=== PATIENT | female | born 1965 | race Caucasian/White ===

== ENCOUNTER → 2017-03-17 11:43 | Outpatient (CLI) | payer MEDICAID, SELFPAY ==
[2017-03-22 15:46] LABS: HPV Reflexed? NOT INDICATED
== END ==
PROVIDERS: Family Provider Family Medicine; PCP Family Medicine; Visit Provider Obstetrics & Gynecology
DX: Z12.4 Encounter for screening for malignant neoplasm of cervix (principal)
CPT/HCPCS: 88175; G0145

== ENCOUNTER → 2017-06-13 10:24 | Outpatient (CLI) | payer MEDICAID, SELFPAY ==
--- NOTE | 2017-06-13 19:33 | STRESSREP ---
Stress Test Report Exercise stress test. 52-year-old lady with a history of chest pain. Stress protocol: Resting EKG demonstrates sinus tachycardia with a rate of 111 bpm. Resting blood pressure is 154 102 mmHg. The patient exercised according to regular Forrest protocol for a total duration of 6 minutes completing stage II of the Forrest protocol. The maximum heart rate attained was 164 bpm which was 96% of maximum predicted heart rate the maximum workload attained was 7 metabolic equivalents. At rest there were no ST or T-wave changes noted suggest ischemia peak exercise upsloping ST changes only were noted we did not meet the criteria for ischemia. The resting blood pressure is 154/102 with a peak blood pressure 180/90 mmHg rate pressure product was 29,500. Conclusion: Exercise stress test with no EKG criteria for ischemia at a moderate workload. Resting hypertension noted. Resting tachycardia.
== END ==
PROVIDERS: Family Provider Family Medicine; PCP Family Medicine; Visit Provider Internal Medicine Cardiovascular Disease
DX: R07.89 Other chest pain (principal)
CPT/HCPCS: 93017